=== PATIENT | male | born 1960 | race Caucasian/White ===

== ENCOUNTER 2018-05-28 02:03 | Inpatient (IN) | payer OTHER ==
[~2018-05-28] VITALS: Ht 175.3 cm; Wt 77.0 kg
[2018-05-28 02:18] LABS: BASOPHILS # (AUTO) 0.06 x10^3/uL (0-0.1); BASOPHILS % (AUTO) 1 % (0-1); EOSINOPHILS # (AUTO) 0.25 x10^3/uL (0-0.4); EOSINOPHILS % (AUTO) 2 % (1-7); LYMPHOCYTES % (AUTO) 34 % (22-44); MD NO; MEAN CORPUSCULAR HEMOGLOBIN 29.2 pg (27.5-34.5); MEAN CORPUSCULAR HGB CONC 32.6 g/dL (33.2-36.2); MEAN CORPUSCULAR VOLUME 89.3 fL (81-97); MEAN PLATELET VOLUME 7.2 fL (7.4-10.4); MONOCYTES # (AUTO) 1.37 x10^3/uL (0.2-0.8); MONOCYTES % (AUTO) 13 % (2-9); NEUTROPHILS # (AUTO) 5.18 x10^3/uL (1.8-6.8); NEUTROPHILS % (AUTO) 50 % (42-75); PLATELET COUNT 207 x10^3/uL (130-400); RED BLOOD COUNT 4.82 x10^6/uL (4.38-5.82); RED CELL DISTRIBUTION WIDTH 16.3 % (9.4-14.8)
[2018-05-28] MEDS ORDERED: CARV3.1212 PO (02:18)
[2018-05-28] MEDS ORDERED: ESOM20CA PO (02:18)
[2018-05-28] MEDS ORDERED: [UNRECOGNIZED DRUG - OTHER] (02:18)
[2018-05-28] MEDS ORDERED: ROSU10TA PO (02:18)
[2018-05-28] MEDS ORDERED: ASPI-515 PO (02:18)
[2018-05-28] MEDS ORDERED: RANI150T23 PO (02:18)
[2018-05-28] MEDS ORDERED: NITROGLYCERIN OINT 2%, 1GM TP ONE ×2 (02:21→02:30)
[2018-05-28 02:28] LABS: ALANINE AMINOTRANSFERASE 31 U/L (12-78); ALBUMIN 3.1 g/dL (3.4-5.0); ANION GAP 8 mmol/L (5-15); CALCIUM 7.9 mg/dL (8.5-10.1); CHLORIDE 111 mmol/L (98-107); CREATININE 1.28 mg/dL (0.7-1.3)
[2018-05-28] MEDS ORDERED: SODIUM CHLORIDE FLUSH 10ML SYR IVF ONE (02:30)
[2018-05-28 02:33] LABS: ALKALINE PHOSPHATASE 73 U/L (45-117); BILIRUBIN,TOTAL 0.4 mg/dL (0.2-1.0); TOTAL PROTEIN 6.7 g/dL (6.4-8.2); TROPONIN I 0.049 ng/mL (0.000-0.045)
[2018-05-28] MEDS ORDERED: MORPHINE SULFATE 4 MG/ML, 1ML IVPush PRN ×2 (03:00→18:00)
[2018-05-28] MEDS ORDERED: ONDANSETRON 2MG/ML, 2ML IVPush ONE (03:00)
[2018-05-28] MEDS ORDERED: MORPHINE SULFATE 4 MG/ML, 1ML ONE (03:13)
[2018-05-28] MEDS ORDERED: ONDANSETRON 2MG/ML, 2ML ONE (03:13)
[2018-05-28] MEDS ORDERED: NS + 20MEQ KCL 1,000 ML IV SCH (03:38)
[2018-05-28 03:55] VITALS: BP 120/78
[2018-05-28] MEDS ORDERED: ONDANSETRON 2MG/ML, 2ML IVPush PRN (04:00)
[2018-05-28] MEDS ORDERED: morphine SULFATE 10 MG/ML, 1ML IVPush PRN (04:00)
[2018-05-28] MEDS ORDERED: DOCUSATE 100 MG CAPSULE PO PRN (04:00)
[2018-05-28] MEDS ORDERED: NITROGLYCERIN 0.4 MG/SPRAY SL PRN (04:00)
[2018-05-28] MEDS ORDERED: POLYETHYLENE GLYCOL 17 GM PACKET PO PRN (04:00)
[2018-05-28] MEDS ORDERED: ACETAMINOPHEN 325 MG TABLET PO PRN (04:00)
[2018-05-28] MEDS ORDERED: NITROGLYCERIN 0.4 MG BOTTLE (25 TABS) SL PRN (04:00)
[2018-05-28] MEDS ORDERED: CARVEDILOL 3.125 MG TABLET PO SCH (06:00)
[2018-05-28 07:16] VITALS: BP 120/78
[2018-05-28] MEDS: ASPIRIN 81 MG TABLET EC PO SCH (07:46)
[2018-05-28] MEDS: FAMOTIDINE 20 MG TABLET PO SCH ×2 (07:46→19:12)
[2018-05-28 07:50] VITALS: BP 112/65
[2018-05-28 08:11] LABS: CHOLESTEROL, TOTAL 158 mg/dL (140-239)
[2018-05-28 08:14] LABS: HDL CHOL % 25 % (26-37); HDL CHOLESTEROL (DIRECT) 40 mg/dL (40-60); LDL CHOLESTEROL,CALCULATED 94 mg/dL (54-169); LDL/HDL RATIO 2.4 (0.5-3.0); TRIGLYCERIDES 118 mg/dL (50-200); TROPONIN I 0.988 ng/mL (0.000-0.045); VLDL CHOLESTEROL 24 mg/dL (0-25)
[2018-05-28] MEDS ORDERED: REGADENOSON 0.4 MG/5 ML SYRINGE ONE (11:47)
[2018-05-28] MEDS ORDERED: HEPARIN 5,000 UNITS/ML, 1ML IV ONE (12:30)
[2018-05-28] MEDS ORDERED: HEPARIN 5,000 UNITS/ML, 1ML IV PRN (12:30)
[2018-05-28] MEDS ORDERED: HEPARIN 25,000 UNITS/500ML PMX 500 ML IV PRN (12:30)
[2018-05-28 13:30] VITALS: BP 127/80
[2018-05-28] MEDS ORDERED: NITROGLYCERIN/D5W PMX 250 ML IV PRN (18:30)
[2018-05-28] MEDS: ATORVASTATIN 20 MG TABLET PO SCH (20:13)
[2018-05-28] MEDS ORDERED: ATORVASTATIN 20 MG TABLET PO SCH (21:00)
[2018-05-29 01:56] LABS: BASOPHILS # (AUTO) 0.09 x10^3/uL (0-0.1); BASOPHILS % (AUTO) 1 % (0-1); EOSINOPHILS # (AUTO) 0.13 x10^3/uL (0-0.4); EOSINOPHILS % (AUTO) 1 % (1-7); LYMPHOCYTES # (AUTO) 2.33 x10^3/uL (1-3.4); LYMPHOCYTES % (AUTO) 20 % (22-44); MD NO; MEAN CORPUSCULAR HEMOGLOBIN 29.4 pg (27.5-34.5); MEAN CORPUSCULAR HGB CONC 32.8 g/dL (33.2-36.2); MEAN CORPUSCULAR VOLUME 89.7 fL (81-97); MEAN PLATELET VOLUME 7.5 fL (7.4-10.4); MONOCYTES # (AUTO) 1.25 x10^3/uL (0.2-0.8); MONOCYTES % (AUTO) 11 % (2-9); NEUTROPHILS # (AUTO) 7.94 x10^3/uL (1.8-6.8); NEUTROPHILS % (AUTO) 68 % (42-75); PLATELET COUNT 185 x10^3/uL (130-400); RED BLOOD COUNT 4.52 x10^6/uL (4.38-5.82); RED CELL DISTRIBUTION WIDTH 16.9 % (9.4-14.8)
[2018-05-29 02:07] LABS: ALBUMIN 2.7 g/dL (3.4-5.0); ANION GAP 7 mmol/L (5-15); CALCIUM 8.2 mg/dL (8.5-10.1); CHLORIDE 108 mmol/L (98-107); CREATININE 1.31 mg/dL (0.7-1.3)
[2018-05-29] MEDS ORDERED: TRAZODONE 50MG TABLET PO PRN (03:30)
[2018-05-29] MEDS ORDERED: MORPHINE SULFATE 4 MG/ML, 1ML IVPush PRN (03:30)
[2018-05-29 05:48] VITALS: BP 95/48
[2018-05-29] MEDS ORDERED: BIVALIRUDIN 250 MG ONE ×2 (08:46→10:12)
[2018-05-29] MEDS ORDERED: TICAGRELOR 90 MG TABLET ONE (08:46)
[2018-05-29] MEDS ORDERED: FENTANYL PF 100 MCG/2ML ONE (08:46)
[2018-05-29] MEDS ORDERED: VERAPAMIL 2.5 MG/ML, 2ML ONE (08:46)
[2018-05-29] MEDS ORDERED: NITROGLYCERIN 5 MG/ML, 10ML ONE (08:46)
[2018-05-29] MEDS ORDERED: MIDAZOLAM 1 MG/ML, 5ML ONE (08:46)
[2018-05-29] MEDS ORDERED: HEPARIN 1,000 UNITS/ML, 10ML ONE (08:47)
[2018-05-29] MEDS ORDERED: LIDOCAINE 2%, 20ML ONE (08:47)
[2018-05-29] MEDS: ASPIRIN 81 MG TABLET EC PO SCH (09:00)
[2018-05-29] MEDS ORDERED: ENOXAPARIN 40 MG/0.4 ML SQ SCH (09:00)
[2018-05-29] MEDS ORDERED: ASPIRIN 325 MG TABLET EC ONE (10:04)
[2018-05-29] MEDS ORDERED: BIVALIRUDIN 250 MG in DEXTROSE 5% 100 ML IV SCH (10:31)
[2018-05-29] MEDS ORDERED: SODIUM CHLORIDE 0.9% 1,000 ML IV SCH (10:31)
[2018-05-29 12:00] VITALS: BP 103/66
[2018-05-29] MEDS: HYDROcodone/APAP 5/325 TABLET PO PRN ×2 (16:18→20:58)
[2018-05-29] MEDS: ATORVASTATIN 20 MG TABLET PO SCH (20:04)
[2018-05-29 20:50] VITALS: BP 100/62
[2018-05-30 02:57] VITALS: BP 92/58
[2018-05-30 04:30] LABS: ANION GAP 4 mmol/L (5-15); CALCIUM 7.9 mg/dL (8.5-10.1); CHLORIDE 106 mmol/L (98-107); CREATININE 1.21 mg/dL (0.7-1.3)
[2018-05-30 07:35] VITALS: BP 99/63
[2018-05-30] MEDS ORDERED: ASPIRIN 81 MG TABLET EC PO SCH (09:00)
[2018-05-30] MEDS: FAMOTIDINE 20 MG TABLET PO SCH (09:00)
[2018-05-30] MEDS ORDERED: TICAGRELOR 90 MG TABLET PO SCH (09:00)
[2018-05-30] MEDS ORDERED: NITR0.4T SL (10:45)
[2018-05-30] MEDS ORDERED: TICA90TA PO (10:45)
[2018-05-30] MEDS ORDERED: ACET325T14 PO (10:45)
[2018-05-30] MEDS ORDERED: METO25TA2 PO (10:45)
== END 2018-05-30 11:55 | disposition home or self-care (01) | DRG 247 ==
LOC: ED 02:30 → EDIP 02:53 → 5SO 03:45 → CCU 18:38 → 5SO 05-29 10:18 → DCLOUNGE 05-30 11:38
PROVIDERS: ADMIT Family Medicine; ATTEND Family Medicine
PROC: 5A1935Z Respiratory Ventilation, Less than 24 Consecutive Hours (ICD-10-PCS; 2018-05-28)
PROC: 027034Z Dilation of Coronary Artery, One Artery with Drug-eluting Intraluminal Device, Percutaneous Approach (ICD-10-PCS; principal; 2018-05-29)
PROC: 4A023N7 Measurement of Cardiac Sampling and Pressure, Left Heart, Percutaneous Approach (ICD-10-PCS; 2018-05-29)
PROC: B2111ZZ Fluoroscopy of Multiple Coronary Arteries using Low Osmolar Contrast (ICD-10-PCS; 2018-05-29)
PROC: B2151ZZ Fluoroscopy of Left Heart using Low Osmolar Contrast (ICD-10-PCS; 2018-05-29)
DX: I21.4 Non-ST elevation (NSTEMI) myocardial infarction (principal); E11.9 Type 2 diabetes mellitus without complications; E78.5 Hyperlipidemia, unspecified; I10 Essential (primary) hypertension; I25.10 Atherosclerotic heart disease of native coronary artery without angina pectoris; K21.9 Gastro-esophageal reflux disease without esophagitis; Z87.891 Personal history of nicotine dependence
CPT/HCPCS: 36415; 93458; 99285; C9600; 71045; 78452; 80048; 80053; 80061; 82040; 83880; 84484; 85025; 85520; 87081; 93005; 93017; 93306; 96374; 96375; 99156; 99157; C1769; C1894; G0378; J0583; J1644; J2250; J2405; J2785; J3010; J3480; J3490; A9502; C1725; C1874; C1887; C9898; Q9967

== ENCOUNTER 2019-01-03 12:38 | Outpatient (CLI) | payer OTHER | END 2019-01-03 23:59 | disposition home or self-care (01) | LOC: CFH 12:38 | PROVIDERS: ATTEND Internal Medicine Cardiovascular Disease | DX: I25.10 Atherosclerotic heart disease of native coronary artery without angina pectoris (principal); Z95.5 Presence of coronary angioplasty implant and graft | CPT/HCPCS: 78452; 93017; A9502 ==

== ENCOUNTER → 2020-02-14 | Outpatient (CLI) | payer OTHER ==
[~2020-02-14] MED LIST: ACET325T14 PO; ASPI-515 PO; CARV3.1212 PO; ESOM20CA PO; METO25TA2 PO; NITR0.4T41 SL; RANI-467 PO; REGADENOSON 0.4 MG/5 ML SYRINGE ONE; ROSU10TA2 PO; TICA90TA PO; [UNRECOGNIZED DRUG - OTHER]
== END | disposition home or self-care (01) ==
LOC: CFH 12:36
PROVIDERS: ATTEND Internal Medicine Cardiovascular Disease
DX: I25.89 Other forms of chronic ischemic heart disease (principal); I21.19 ST elevation (STEMI) myocardial infarction involving other coronary artery of inferior wall; Z95.5 Presence of coronary angioplasty implant and graft
CPT/HCPCS: 78452; 93017; A9502; J2785

== ENCOUNTER 2020-10-02 08:00 | Outpatient (CLI) | payer OTHER ==
[~2020-10-02 08:00] MED LIST changes: -ASPI-515 PO; +ASPI-963 PO; -REGADENOSON 0.4 MG/5 ML SYRINGE ONE
[2020-10-02] MEDS ORDERED: ROSU20TA2 PO ×2 (11:29→11:32)
[2020-10-02] MEDS ORDERED: BICT1TAB PO (11:29)
[2020-10-02] MEDS ORDERED: METO25TA91 PO (11:29)
[2020-10-02] MEDS ORDERED: OMEP-110 PO (11:32)
[2020-10-02] MEDS ORDERED: UBID30CA9 PO (11:32)
[2020-10-02] MEDS ORDERED: PRAS10TA4 PO (11:32)
[2020-10-02] MEDS ORDERED: LACT1CAP37 PO (11:32)
== END 2020-10-02 23:59 | disposition home or self-care (01) ==
LOC: STAR 08:00
PROVIDERS: ATTEND Orthopaedic Surgery
DX: Z01.812 Encounter for preprocedural laboratory examination (principal); Z20.822 Contact with and (suspected) exposure to COVID-19; M17.11 Unilateral primary osteoarthritis, right knee; M70.41 Prepatellar bursitis, right knee; Z79.01 Long term (current) use of anticoagulants
CPT/HCPCS: 36415; 80048; 83036; 85025; 85610; 85730; 87081; 87806; 93005; U0003; G0475